=== PATIENT | female | born 2000 | race African-American/Black ===

== ENCOUNTER 2019-07-09 19:52 | Emergency (ER) | payer SELFPAY ==
[2019-07-09 20:00] VITALS: BP 146/71
--- NOTE | 2019-07-09 20:00 | UC ---
Complaint Female HPI - HPI Summary HPI Summary: 19 yo with perineal nodule for the past 4 days, with fluctuating size and tenderness. Her on line research suggested a Bartholin's cyst, and she comes for assessment of this. Ibuprofen has helped to relieve the pain, as have sitz baths. She is concerned about STI's, although she does not have vaginal discharge. Last sexual activity was prior to her most recent menses on 06/22. She has not had STI screening in the past but would like to be tested at this time. - History Of Current Complaint Stated Complaint: PERSONAL Time Seen by Provider: 07/09/19 19:57 Hx Obtained From: Patient Onset/Duration: Gradual Onset, Lasting Days Timing: Constant Severity Initially: Mild Severity Currently: Moderate Character: Not Applicable Aggravating Factor(s): Movement Alleviating Factor(s): Position - direct pressure is most painful, relieves with lying down Associated Signs And Symptoms: Positive: Negative - Risk Factors Ectopic Risk Factor: Negative - Allergies/Home Medications Allergies/Adverse Reactions: Allergies Allergy/AdvReac Type Severity Reaction Status Date / Time No Known Allergies Allergy Verified 07/09/19 20:01 Home Medications: Home Medications cephALEXin [Keflex] 500 mg PO TID #15 capsule 07/09/19 [Rx] metroNIDAZOLE [Flagyl 500 MG TAB] 500 mg PO BID #14 tab 07/11/19 [Rx] PMH/Surg Hx/FS Hx/Imm Hx Previously Healthy: Yes - Family History Known Family History: Positive: Diabetes - Social History Occupation: Unemployed Lives: With Family Substance Use Type: None Smoking Status (MU): Never Smoked Tobacco Review of Systems All Other Systems Reviewed And Are Negative: Yes Constitutional: Positive: Negative. Negative: Fever Skin: Positive: Negative Eyes: Positive: Negative ENT: Positive: Negative Respiratory: Positive: Negative Cardiovascular: Positive: Negative Gastrointestinal: Positive: Negative Genitourinary: Positive: Other - painful nodule on perineum Motor: Positive: Negative Neurovascular: Positive: Negative Musculoskeletal: Positive: Negative Neurological/Mental Status: Positive: Negative Psychological: Positive: Negative Is Patient Immunocompromised?: No Physical Exam Triage Information Reviewed: Yes Appearance: Well-Appearing, Pain Distress - mild to moderate Vital Signs Reviewed: Yes ENT: Positive: Normal ENT inspection Respiratory: Positive: Lungs clear, Normal breath sounds, No respiratory distress Cardiovascular: Positive: RRR, No Murmur Abdomen Description: Positive: Nontender, No Organomegaly, Soft Pelvic Exam: Positive: Mass - posterior right perineum with large tender nodule with overlying erythema. Firm nodule, no fluctuance, size approx 7 x 5 cm and partly obscures the vaginal orifice. Due to size and amount of pain, decision made not to perform speculum exam. Musculoskeletal Exam: Normal Neurological Exam: Normal Psychological Exam: Normal Skin Exam: Normal Complaint Female Dx - Course Course Of Treatment: Verbal consent obtained to perform pelvic exam, and RN Penelope was present in the room as manager field at the time of the pelvic evaluation. Discussed that we do not have the capability to drain a Bartholin's cyst/ abscess at [facility]. Advised initiatio of antibiotic, continuation of sitz baths, and referral to gynecology. She is aware that she should proceed to the ER for evaluation over the weekend. Swabs were obtaine to screen for gene, yeast, and Trichomonas, and decision made to perform testing for Chlamydia and gonorrhea on a urine sample. - Differential Dx/Diagnosis Differential Diagnosis/HQI/PQRI: Bartholin Cyst, Other - STI Provider Diagnosis: Bartholin's gland abscess Discharge ED - Sign-Out/Discharge Documenting (check all that apply): Patient Departure All imaging exams completed and their final reports reviewed: No Studies - Discharge Plan Condition: Stable Disposition: HOME Prescriptions: cephALEXin [Keflex] 500 mg PO TID #15 capsule metroNIDAZOLE [Flagyl 500 MG TAB] 500 mg PO BID #14 tab Patient Education Materials: Bartholin Cyst (ED) Referrals: No Primary Care Phys,NOPCP [Primary Care Provider] - Surjit Curiel JR, DO [Doctor of Osteopathy] - Additional Instructions: You have a Bartholin cyst which appears to be developing an abscess. Continue sitz baths OR warm moist compresses to relieve pain and swelling. use ibuprofen 600mg up to 4 times per day for pain. You have been prescribed cephalexin to treat the suspected infection. Screening has been done for Chamydia, gonorrhea, yeast, bacterial vaginosis and Trichomonas, and you will be called if the results are positive and treatment is needed. You have a referral to gynecology. Please call Thursday morning to arrange an evaluation. - Billing Disposition and Condition Condition: STABLE Disposition: Home
[2019-07-09] MEDS ORDERED: Ibuprofen TAB* 600 MG PO ONE (20:17)
[2019-07-09] MEDS ORDERED: Cephalexin CAP* 500 MG PO ONE (20:18)
[2019-07-11 13:58] LABS: Chlamydia trachomatis NAA Negative (Negative); Neisseria gonorrhoeae (GC) NAA Negative (Negative)
--- NOTE | 2019-07-11 19:29 | UC ---
- Progress Note Progress Note: Vaginal DNA results from July 09, 2019 comes back positive for Gardnerella. It was negative for Latasha and Trichomonas. Gonorrhea and chlamydia also negative. Patient was placed on Keflex for a Bartholin's gland abscess. Nursing to call patient inform the patient of the results and have called in Flagyl 500 mg by mouth twice a day for 7 days to treat the Gardnerella. Course/Dx - Diagnoses Provider Diagnoses: Bartholin's gland abscess Discharge ED - Sign-Out/Discharge Documenting (check all that apply): Patient Departure All imaging exams completed and their final reports reviewed: No Studies - Discharge Plan Condition: Stable Disposition: HOME Prescriptions: cephALEXin [Keflex] 500 mg PO TID #15 capsule metroNIDAZOLE [Flagyl 500 MG TAB] 500 mg PO BID #14 tab Patient Education Materials: Bartholin Cyst (ED) Referrals: Surjit Curiel JR, DO [Doctor of Osteopathy] - No Primary Care Phys,NOPCP [Primary Care Provider] - Additional Instructions: You have a Bartholin cyst which appears to be developing an abscess. Continue sitz baths OR warm moist compresses to relieve pain and swelling. use ibuprofen 600mg up to 4 times per day for pain. You have been prescribed cephalexin to treat the suspected infection. Screening has been done for Chamydia, gonorrhea, yeast, bacterial vaginosis and Trichomonas, and you will be called if the results are positive and treatment is needed. You have a referral to gynecology. Please call Thursday morning to arrange an evaluation. - Billing Disposition and Condition Condition: STABLE Disposition: Home
== END 2019-07-09 20:26 | disposition home or self-care (01) ==
LOC: UCCORT 19:52
DX: N75.1 Abscess of Bartholin's gland (principal)
CPT/HCPCS: 87480; 87491; 87510; 87591; 87660; 99212; A9270-GY; G0463